=== PATIENT | male | born 1975 | race Caucasian/White ===

== ENCOUNTER 2018-07-17 11:22 | Emergency (ER) | payer OTHER ==
[2018-07-17] MEDS ORDERED: ONDANSETRON 4 MG/2 ML VIAL IVP ONE (12:19)
[2018-07-17] MEDS ORDERED: NS 1,000 ML IV ONE ×2 (12:19)
--- NOTE | 2018-07-17 12:27 | EDPHY ---
H & P Stated Complaint: L flank pain this am-was seen at [facility] [place] +hematuria now better after toradol Time Seen by Provider: 07/17/18 12:19 HPI/ROS: HPI: This is a 42-year-old male who presents with Chief Complaint: L flank pain this am-was seen at [facility] [place] +hematuria now better after toradol Location: Left flank Quality: Pain Duration: Since this morning Signs and Symptoms: no fever, + nausea, no vomiting, no hematemesis, no blood in stool, no abdominal bloating, no diarrhea, no back pain, no urinary symptoms , no blood in urine, no testicular/groin pain, no indigestion, no chest pain, no shortness of breath Timing: Acute, constant Severity: Moderate Context: Patient went to urgent care this morning due to sudden onset of left flank pain that started this morning that was constant nonradiating in nature. Urinalysis was performed and showed blood in his urine and patient was sent to the emergency room for kidney stone evaluation. Patient has no history of kidney stones. Denies fevers, chills, fatigue, back pain, blood in urine, burning with urination. Modifying Factors: Received Toradol IM at urgent care and had moderate relief of symptoms Comment: ROS: A comprehensive 10 system review of systems is otherwise negative aside from elements mentioned in the history of present illness. MEDICAL/SURGICAL/SOCIAL HISTORY: Medical history: Generally healthy. Does not take any regular medications. Surgical history: Denies Social history: Employed. Nonsmoker. Family history noncontributory. CONSTITUTIONAL: Nontoxic-appearing middle-aged white male, resting comfortably on ER stretcher, awake and alert, no obvious distress HEENT: Atraumatic and normocephalic, PERRL, EOMI. Nares patent; no rhinorrhea; no nasal mucosal edema. Tympanic membranes clear. Oropharynx clear, no exudate and moist pink mucosa. Airway patent. No lymphadenopathy. No meningismus. Cardiovascular: Normal S1/S2, regular rate, regular rhythm, without murmur rub or gallop. PULMONARY/CHEST: Symmetrical and nontender. Clear to auscultation bilaterally. Good air movement. No accessory muscle usage. ABDOMEN: Soft, nondistended, nontender, no rebound, no guarding, no peritoneal signs, no masses or organomegaly. No CVAT. EXTREMITIES: 2/2 pulses, strength 5/5, no deformities, no clubbing, no cyanosis or edema. NEUROLOGICAL: no focal neuro deficits. GCS 15. SKIN: Warm and dry, no erythema. no rash. Good capillary refill. Source: Patient, RN/MD Exam Limitations: No limitations - Medical/Surgical History Hx Asthma: No Hx Chronic Respiratory Disease: No Hx Diabetes: No Hx Cardiac Disease: No Hx Renal Disease: No Hx Cirrhosis: No Hx Alcoholism: No Hx HIV/AIDS: No Hx Splenectomy or Spleen Trauma: No Other PMH: denies - Social History Smoking Status: Never smoked Constitutional: Initial Vital Signs Temperature (C) 36.5 C 07/17/18 11:29 Heart Rate 69 07/17/18 11:29 Respiratory Rate 16 07/17/18 11:29 Blood Pressure 118/76 07/17/18 11:29 O2 Sat (%) 97 07/17/18 11:29 O2 Delivery Mode Room Air Allergies/Adverse Reactions: No Known Allergies Allergy (Unverified 07/17/18 11:28) Home Medications: Medication Instructions Recorded Ondansetron Odt [Zofran Odt 4 mg 4 mg PO Q4 PRN #12 tab 07/17/18 (*)] Tamsulosin HCl [Flomax 0.4 MG (*)] 0.4 mg PO DAILY #10 cap 07/17/18 oxyCODONE/APAP 5/325 [Percocet 1 - 2 tab PO Q4H PRN #10 tab 07/17/18 5/325 (*)] Medical Decision Making - Diagnostics Imaging Results: Imaging Impressions Abdomen/Pelvis CT 07/17/18 12:19 IMPRESSION: 1. 2.5 mm obstructing stone at the left ureterovesicular junction causing mild left hydroureteronephrosis and perinephric stranding, pyelonephritis/ pyonephrosis cannot be radiographically excluded. Josie Ray was notified of these findings at 2:08 PM on 07/17/2018. ED Course/Re-evaluation: Vital signs reviewed and stable upon arrival. No systemic signs. IV access, laboratory studies, urinalysis, CT abdomen and pelvis scan without contrast ordered Given 2 L normal saline, IV Zofran 4 mg 1325: Labs reviewed. WBC 10 K. No signs of anemia/platelet dysfunction/ALPHONSO/ electrolyte imbalance. 1429: Called by Dr. Govea, who advised that CT abdomen and pelvis scan shows 2.5 mm obstructing stone at the left ureterovesicular junction causing mild left hydroureteronephrosis and perinephric stranding, pyelonephritis/ pyonephrosis cannot be radiographically excluded. Given Flomax and strainer. Urology follow-up. This patient was seen under the supervision of my secondary supervising physician. I evaluated care for this patient independently. Differential Diagnosis: Flank pain including but not limited to musculoskeletal causes, kidney stone, pyelonephritis, shingles, and intra-abdominal causes such as diverticulitis and appendicitis. - Data Points Laboratory Results: Laboratory Results 07/17/18 13:00 07/17/18 13:00 07/17/18 07/17/18 13:00 13:00 WBC 10.21 10^3/uL H 10^3/uL (3.80-9.50) RBC 4.98 10^6/uL 10^6/uL (4.40-6.38) Hgb 14.9 g/dL g/dL (13.7-17.5) Hct 45.0 % % (40.0-51.0) MCV 90.4 fL fL (81.5-99.8) MCH 29.9 pg pg (27.9-34.1) MCHC 33.1 g/dL g/dL (32.4-36.7) RDW 12.8 % % (11.5-15.2) Plt Count 263 10^3/uL 10^3/uL (150-400) MPV 9.6 fL fL (8.7-11.7) Neut % (Auto) 84.9 % H % (39.3-74.2) Lymph % (Auto) 6.9 % L % (15.0-45.0) [place] % (Auto) 7.7 % % (4.5-13.0) Eos % (Auto) 0.0 % L % (0.6-7.6) Baso % (Auto) 0.2 % L % (0.3-1.7) Nucleat RBC Rel Count 0.0 % % (0.0-0.2) Absolute Neuts (auto) 8.67 10^3/uL H 10^3/uL (1.70-6.50) Absolute Lymphs (auto) 0.70 10^3/uL L 10^3/uL (1.00-3.00) Absolute Monos (auto) 0.79 10^3/uL 10^3/uL (0.30-0.80) Absolute Eos (auto) 0.00 10^3/uL L 10^3/uL (0.03-0.40) Absolute Basos (auto) 0.02 10^3/uL 10^3/uL (0.02-0.10) Absolute Nucleated RBC 0.00 10^3/uL 10^3/uL (0-0.01) Immature Gran % 0.3 % % (0.0-1.1) Immature Gran # 0.03 10^3/uL 10^3/uL (0.00-0.10) Sodium 139 mEq/L mEq/L (135-145) Potassium 4.7 mEq/L mEq/L (3.5-5.2) Chloride 106 mEq/L mEq/L (97-110) Carbon Dioxide 23 mEq/l mEq/l (22-31) Anion Gap 10 mEq/L mEq/L (6-14) BUN 21 mg/dL mg/dL (7-23) Creatinine 1.2 mg/dL mg/dL (0.7-1.3) Estimated GFR > 60 Glucose 114 mg/dL H mg/dL (70-100) Calcium 9.7 mg/dL mg/dL (8.5-10.4) Medications Given: Discontinued Medications Sodium Chloride (Ns) 1,000 mls @ 0 mls/hr IV ONCE ONE; Wide Open PRN Reason: Protocol Stop: 07/17/18 12:20 Last Admin: 07/17/18 12:49 Dose: 1,000 mls Sodium Chloride (Ns) 1,000 mls @ 0 mls/hr IV ONCE ONE; Wide Open PRN Reason: Protocol Stop: 07/17/18 12:20 Last Admin: 07/17/18 12:50 Dose: 1,000 mls Ondansetron HCl (Zofran) 4 mg IVP EDNOW ONE Stop: 07/17/18 12:20 Last Admin: 07/17/18 12:50 Dose: Not Given Departure - Departure Disposition: Home, Routine, Self-Care Clinical Impression: Renal colic on left side, Ureterolithiasis Condition: Good Instructions: Renal Colic (ED), Ureteral Stones (ED) Additional Instructions: Consume a minimum of 8-10 glasses of water or electrolyte fluid replacement drinks that include Gatorade, Powerade, Pedialyte. Eat a bland diet for the next 48 hours and then slowly advance as tolerated. Take Zofran 1 tab every 4 hours as needed for nausea, vomiting. Take Tylenol 650 mg every 4 hours and/or Ibuprofen 600 mg every 8 hours with food as needed for pain. Use Percocet every 6 hours as needed for severe/break through pain. Do not use Tylenol and Percocet concomitantly. Take Flomax daily until your stone passes. Follow-up with Urology in the next 1-2 weeks. Referrals: Chula Hobbs MD [Medical Doctor] - As per Instructions Prescriptions: Ondansetron Odt [Zofran Odt 4 mg (*)] 4 mg PO Q4 PRN #12 tab PRN Reason: Nausea/Vomiting, Use 1st oxyCODONE/APAP 5/325 [Percocet 5/325 (*)] 1 - 2 tab PO Q4H PRN #10 tab PRN Reason: Pain, Severe Tamsulosin HCl [Flomax 0.4 MG (*)] 0.4 mg PO DAILY #10 cap
[2018-07-17 13:24] LABS: PLATELET COUNT 263 10^3/uL (150-400)
[2018-07-17 15:01] VITALS: BP 105/62
== END 2018-07-17 15:01 | disposition home or self-care (01) ==
DX: N13.0 Hydronephrosis with ureteropelvic junction obstruction (principal); N13.4 Hydroureter; E86.9 Volume depletion, unspecified
CPT/HCPCS: J2405

== ENCOUNTER → 2018-07-26 | Outpatient (CLI) | payer OTHER | LOC: BMCIMAGING 08:15 | PROVIDERS: ATTEND Urology | DX: N20.1 Calculus of ureter (principal) | CPT/HCPCS: 82365-90 ==